=== PATIENT | male | born 1985 | race Caucasian/White ===

== ENCOUNTER 2019-12-27 10:38 | Emergency (ER) | payer MEDICAID, SELFPAY ==
[2019-12-27 10:56] VITALS: BP 151/89; PULSE 80; RESP 18; TEMP 36.7; O2SAT 100; BMI 27.3
[2019-12-27] MEDS: Lidocaine HCl 1 % MPF 5 ML VIAL SUBCUT (11:04)
--- NOTE | 2019-12-27 11:35 | ED_ITS ---
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 Tetanus vaccination 6 months ago. This occurred just prior to arrival. He is right- hand dominant. Has full range of motion in the left hand/fingers including the injured finger. Bleeding controlled. Onset (ago): minute(s) Extremity Location: left: hand (Dorsum of the left 5th finger) Place: home Patient tetanus UTD: Yes Context: accidental Associated symptoms: none Treatments prior to arrival: bandage Related Data Previous Rx's Medication Instructions Recorded cephalexin [Keflex] 500 mg PO BID 7 Days #14 cap 12/27/19 ibuprofen 600 mg PO Q8H PRN #14 tab 12/27/19 Allergies Allergy/AdvReac Type Severity Reaction Status Date / Time No Known Allergies Allergy Verified 12/27/19 10:58 Review of Systems Review of Systems: Constitutional: No Weight loss, No Fever, No Chills ENT/Mouth: No Hearing loss, No Ear Pain, No Nasal Congestion Eyes: No Eye Pain, No Swelling, No Redness Cardiovascular: No Chest Pain Respiratory: No Cough Musculoskeletal: No joint pain, No Myalgias, No Joint Swelling Skin: No Skin Lesions, No rash Neuro: No Weakness, No Numbness, No Paresthesias Psych: No Social Issues, Heme/Lymph: No Bruising, No Bleeding,No Lymphadenopathy Endocrine: No Polyuria, No Polydipsia, No Temperature Intolerance Yes all other systems are reviewed and are negative [facility] Past Medical History Attestation statement: The following information was validated with the patient. Medical History (Updated 12/27/19 @ 11:38 by Channing Gusman NP) No known health problems Social History Social History Advance Directives: No Advance Directives Information Provided: No Physical Exam Vital Signs: Vital Signs: Last Vital Signs Temp 98.0 F 12/27/19 10:56 Pulse 80 12/27/19 10:56 Resp 18 12/27/19 10:56 BP 151/89 H 12/27/19 10:56 Pulse Ox 100 12/27/19 10:56 Body Mass Index 27.3 Reviewed Const: General: cooperative and healthy appearing; No acute distress or intoxicated appearing Nutritional Appearance: average body habitus Orientation/consciousness: patient oriented x3 HENMT: Head: Yes normal to inspection Ears: hearing grossly normal bilaterally Eyes: General: appearance normal, both eyes and all related structures Visual Olivo: normal visual olivo by confrontation Chest: Chest palpation & inspection: normal inspection of the chest Resp: Effort & Inspection: normal respiratory effort : General: Yes no CVA tenderness Back/Spine/Pelvis: Back: no CVA tenderness Skin: General skin exam: no rashes or lesions noted Neuro: General: patient oriented x3 Extrem: General: Yes normal to inspection Hand/finger images: 1. Superficial laceration/skin flap type laceration. Has full range of motion. No deep tissue exposure or bone exposure. Finger to thumb within normal limits. No active bleeding. Laceration measures 3.5 cm J- shaped. 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 Lab Data Attestation: I reviewed the patient's lab results. Discharge Plan Discharge Clinical Impression: Laceration Patient Disposition: Home, Self-Care Instructions: Laceration (ED) Additional Instructions: Today you were evaluated for a superficial laceration to the dorsum of the left 5th finger This laceration require 6 superficial stitches to repair Keep site clean and dry Covered during the day Open to air at night Wear your splint finger splint at all times Take your antibiotics as prescribed for the full course these are being prescribed to prevent infection from occurring as your wound was relatively contaminated from oils although this was completely cleaned out thoroughly there is still a chance and thus you have been placed on antibiotics You states that your tetanus vaccinations up-to-date You can return here in 7 days to have stitches removed or your primary care doctor Return to emergency room sooner if any concerns or signs of infection as I have reviewed through this includes redness, swelling, discharge, pain Thank you Prescription sent to her pharmacy Prescriptions: New cephalexin [Keflex] 500 mg capsule 500 mg PO BID 7 Days Qty: 14 RF: 0 ibuprofen 600 mg tablet 600 mg PO Q8H PRN (Reason: pain) Qty: 14 RF: 0 Referrals: Channing Gusman [employer] [Emergency Midlevel Provider] - 1 week (Suture removal)
== END 2019-12-27 11:56 | disposition home or self-care (01) ==
PROVIDERS: Emergency Provider Emergency Medicine; PCP Internal Medicine
DX: S61.217A Laceration without foreign body of left little finger without damage to nail, initial encounter (principal); M79.645 Pain in left finger(s); W29.8XXA Contact with other powered hand tools and household machinery, initial encounter; Y93.9 Activity, unspecified; Y92.9 Unspecified place or not applicable; Y99.9 Unspecified external cause status; Z79.899 Other long term (current) drug therapy
CPT/HCPCS: 12042; 99283; 99284

== ENCOUNTER 2020-01-03 10:05 | Emergency (ER) | payer MEDICAID, SELFPAY ==
--- NOTE | 2020-01-03 12:30 | PC.NURSE ---
PT CALLED TO [facility] AT 1115, 1145 [address] 1200 NOT IN WR
== END 2020-01-03 13:05 | disposition left against medical advice (07) ==
PROVIDERS: Emergency Provider Emergency Medicine; PCP Internal Medicine
DX: Z48.02 Encounter for removal of sutures (principal)
CPT/HCPCS: 99281